=== PATIENT | female | born 1975 | race Caucasian/White ===

== ENCOUNTER 2024-06-30 09:21 | Day surgery (SDC) | payer BC ==
[2024-06-30] MEDS: Lactated Ringers 1,000 ML IV SCH (09:43)
[2024-06-30] MEDS ORDERED: Midazolam 1 MG/ML 2 ML SDV ONE (10:20)
[2024-06-30] MEDS ORDERED: Propofol 200 MG/20 ML SDV ONE (10:20)
[2024-06-30] MEDS ORDERED: Ketamine 200 MG/20 ML MDV ONE (10:20)
[2024-06-30] MEDS ORDERED: fentaNYL 50 MCG/ML SDV ONE (10:20)
== END 2024-06-30 11:34 | disposition home or self-care (01) ==
LOC: CC.SDS 09:21
PROVIDERS: ATTEND Family Medicine
DX: Z12.11 Encounter for screening for malignant neoplasm of colon (principal); K63.89 Other specified diseases of intestine; I12.9 Hypertensive chronic kidney disease with stage 1 through stage 4 chronic kidney disease, or unspecified chronic kidney disease; N18.31 Chronic kidney disease, stage 3a; D63.1 Anemia in chronic kidney disease; E78.5 Hyperlipidemia, unspecified; E66.01 Morbid (severe) obesity due to excess calories; Z68.39 Body mass index [BMI] 39.0-39.9, adult; Z88.2 Allergy status to sulfonamides; Z88.5 Allergy status to narcotic agent; Z79.899 Other long term (current) drug therapy
CPT/HCPCS: 36415; 84703; J2250; J2704; J3010; J3490; J7120